=== PATIENT | female | born 1985 | race Two or more races ===

== ENCOUNTER → 2016-09-03 | Outpatient (CLI) | payer OTHER ==
[~2016-09-03] MED LIST: /RANI15TA PO; BACL10TA2 PO; CARB100C PO; D3400CAP PO; GABA-283 PO; HYDR7.5T38 PO; MULTCAP8 PO; PRAZ5CAP PO; TRAZ50TA2 PO; VITATAB11 PO; [UNRECOGNIZED DRUG - OTHER] PO
--- NOTE | 2016-09-12 00:37 | ECWPNPC ---
PATIENT NAME: ARVIND LEVY : 1985 GENDER: FEMALE VISIT DATE: 09/03/2016 DISCHARGE DATE: 09/03/16 1447 VISIT LOCKED DATE TIME: PHYSICIAN: RADHA NOE RESOURCE: RADHA NOE REASON FOR APPOINTMENT 1. RECONSULT LOW BACK PAIN HISTORY OF PRESENT ILLNESS HISTORY OF PRESENT ILLNESS: PAIN THE PATIENT DESCRIBES THE PAIN... FALL RISK SCREENING: SCREENING :NO FALLS IN THE PAST YEAR TODAY'S VISIT: NOTES: FIRST VISIT BACK TO CLINIC WAS 12/23/14 AT WHICH TIME SHE HAD A LESB. AT [facility]. THIS PROVIDED RELIEF FROM HER BACK PAIN. PAIN BEGAN TO RETURN ABOUT 1 1.2 MONTHS AGO. THERE WAS NO SPECIFIC TRAUMA. SENSATION FEELS LIKE A PINCH TO A KICK IN THE BACK. IS HAVING NUMBNESS IN BOTH FEET INTERMITTANTLY, 2-3 TIMES PER DAY, USUALLY WHILE SEATED ON COUCH. HAS BEEN USING HORSE LINIMENT FOR PAIN CONTROL SHE WANTS NO PRESCRIBED MEDS. HAD EPISODE OF SEVERE PAIN A YEAR AGO WHICH CAUSED OVER USAGE OF PAIN MEDS AND SHE WAS HOSPITALIZED FOR THIS IN [facility]HAVIORAL [facility] AT [facility]. CURRENT MEDICATIONS TAKING HYDROXYZINE HCL 50 MG TABLET 1 TABLET NEEDED ORALLY TWICE DAILY TAKING RANITIDINE HCL 150 MG TABLET 1 TABLET AT BEDTIME ORALLY TWICE A DAY TAKING TRAZODONE HCL 50 MG TABLET 1 TABLET AT BEDTIME ORALLY ONCE A DAY TAKING PRAZOSIN HCL 1 MG CAPSULE 3 CAPSULES AT BEDTIME ORALLY ONCE A DAY TAKING CARBAMAZEPINE 100 MG TABLET CHEWABLE 1 TABLET ORALLY TWICE A DAY TAKING RISPERIDONE 1 MG TABLET 1 TABLET ORALLY TWICE A DAY TAKING TOPIRAMATE 25 MG TABLET 1 TABLET ORALLY TWICE A DAY TAKING FLUOXETINE 20 MG CAPSULE 1 CAPSULE IN THE MORNING ORALLY ONCE A DAY TAKING ZIPRASIDONE HCL 20 MG CAPSULE 1 CAPSULE WITH FOOD ORALLY TWICE A DAY TAKING MIRALAX - PACKET 1 PACKET MIXED WITH 8 OUNCES OF FLUID ORALLY ONCE A DAY MEDICATION LIST REVIEWED AND RECONCILED WITH THE PATIENT PAST MEDICAL HISTORY GERD SUICIDE ATTEMPT X1 BY CUTTING WRIST, X1 BY OD DEPRESSION PTSD CHRONIC BACK PAIN IBS ROJELIO WITH CPAP 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 SOCIAL HISTORY GENERAL: TOBACCO USE ARE YOU A:NONSMOKER ALCOHOL SCREENING POINTS1 INTERPRETATIONNEGATIVE RECREATIONAL DRUG USE DRUG USE?NO CAFFEINE CAFFEINE USE?NO OCCUPATION: [employer] CONS[employer]. DIET: REGULAR. EXERCISE: NO REGULAR EXERCISE. MARITAL STATUS: . OTHERS AT HOME: 2 CHILDREN. CHURCH: NONE AT THIS TIME. LEARNING BARRIERS / SPECIAL NEEDS VISION IMPAIRED?YES :CORRECTIVE LENSES LEARNING PREFERENCES?YES :DEMONSTRATION/VERBAL INSTRUCTION MEDICATION ABUSE YES INPATIENT ADMISSION FOR OVERDOSE ON CYCLOBENZAPRINE " BECAUSE OF THAT MUCH PAIN" PSYCHOLOGICAL HX TREATMENTYES HOW OFTEN AND HOW MUCH? 2-3 WEEKS NEW PATIENT PAIN DIARY TODAY'S VISITNOTES FROM 0-10, WHAT LEVEL IS YOUR PAIN TODAY?0 PAIN CLINIC PFS, CLERGY, PUBLIC HEALTH REFERRALS PFS REFERRAL NEEDED?NO CLERGY REFERRAL NEEDED?NO PUBLIC HEALTH REFERRAL NEEDED?NO WAS THE PROVIDER NOTIFIED OF ANY PERTINENT INFO?NO PFS REFERRAL NEEDED?NO CLERGY REFERRAL NEEDED?NO PUBLIC HEALTH REFERRAL NEEDED?NO WAS THE PROVIDER NOTIFIED OF ANY PERTINENT INFO?NO ADVANCED DIRECTIVES HEALTH CARE PROXY?YES NAME OF HCP RENEE LEVY CONTACT # FOR HCP [phone] IF YES, DO YOU HAVE A COPY WITH YOU? NO DOMESTIC VIOLENCE: NONE. HOSPITALIZATION/MAJOR DIAGNOSTIC PROCEDURE DEPRESSION-SUICIDE ATTEMPTS 2016 SEE SURGICAL HX-ADMITS REVIEW OF SYSTEMS CONSTITUTIONAL: ANY CHANGE IN YOUR MEDICAL CONDITION? YES TONSILLECTOMY 08/22/16 . CHILLS NO . FEVER NO . INFECTION: DO YOU HAVE NEW INFECTIONS? NO . DO YOU HAVE HISTORY OF MRSA? NO . MUSCULOSKELETAL: ANY NEW PATTERNS OF PAIN OR NUMBNESS? YES PT NOTES INTERMIITENT NUMBNESS IN BOTH FEET X 4 MOS. . GASTROENTEROLOGY: ANY NEW CHANGE IN BOWEL CONTROL? NO . GENITOURINARY: ANY NEW CHANGE IN BLADDER CONTROL? NO . IS THERE A CHANCE YOU COULD BE ? NO . HEMATOLOGY/LYMPH: DO YOU TAKE ANY BLOOD THINNERS? (FOR EXAMPLE- COUMADIN, PLAVIX, AGGRENOX, PLATEL, PRADAXA, OR XARELTO) NO . WHEN WAS YOUR LAST DOSE? DATE: TIME: . NEUROLOGY: HAVE YOU FALLEN IN THE PAST 6 MONTHS? NO . ANY NEW EXTREMITY NUMBNESS OR WEAKNESS? NUMBNESS IN FEET INTERMITTANTLY . CARDIOLOGY: DO YOU HAVE A PACEMAKER OR DEFIBRILLATOR? NO . RESPIRATORY: SLEEP APNEA TONSILLECTOMY FOR RELIEF OF SLEEP APNEA . HAVE YOU BEEN SICK IN THE PAST WEEK? NO . FEVER NO . FLU LIKE SYMPTOMS? NO . COUGH NO . INTEGUMENTARY: DO YOU HAVE ANY RASHES OR OPEN SORES? NO . ALLERGIC/IMMUNO: ARE YOU ALLERGIC TO SHELLFISH OR IV DYE? NO . ANY NEW ALLERGIES? NO . PSYCHIATRIC: DO YOU HAVE THOUGHTS OF HURTING YOURSELF OR SOMEONE ELSE? NO . ARE YOU ABUSED, NEGLECTED, OR IN AN UNSAFE ENVIRONMENT? NO . ENDOCRINOLOGY: ARE YOU DIABETIC? NO . OTHER: DO YOU NEED ANY PRESCRIPTIONS? NO . IF YES, PLEASE LIST: ____ . ANY NEW PROBLEMS WITH YOUR MEDICATIONS? NO . WHEN DID YOU LAST EAT? ____ . WHEN DID YOU LAST DRINK? ____ . WHAT DID YOU LAST DRINK? ____ . NAME OF PERSON DRIVING YOU HOME? ____ . DO YOU HAVE ANY OTHER QUESTIONS OR CONCERNS NO . PSYCHOLOGY: ARE YOU RECEIVING COUNSELING? YES - ONGOING TREATMENT . REVIEWED BY: PROVIDER: RADHA FRAZIER . VITAL SIGNS WT 173 LBS, HT 63 IN, BMI 30.64 INDEX, BP 128/84 MM HG, HR 70 /MIN, RR 16 /MIN, TEMP 96.6 F, OXYGEN SAT % 100%, NA INITIALS LC 1323, REVIEWED BY: MLF. EXAMINATION GENERAL EXAMINATION: PSYCHALERT , ORIENTED X 3 , APPROPRIATE MOOD AND AFFECT , GOOD EYE CONTACT, LAUGHS FREQUENTLY. VOICE LOUD. HEENT:NORMOCEPHALIC, NO LYMPHADENOPATHY NO THYROMEGALY . VOICE HOARSE.. LUNGS:CLEAR TO AUSCULTATION BILATERALLY, NO WHEEZES RALES OR RHONCHI. HEART:NORMAL S1S2, NO MURMURS, CLICK OR RUBS. MUSCULOSKELETAL:POINT TENDERNESS OVER LUMBAR SPINOUS PROCESSES AND ACROSS THE LUMBOSACRAL AXIS. POINT TENDERNESS ALSO PRESENT BILATERALLY OVER THE SACROILIAC JOINTS. CAN FLEX TO 45 . EXTEND TO 20 . CAN ROTATE SIDE TO SIDE WITHOUT DIFFICULTY. STRAIGHT LEG RAISE POSITIVE AT 20 BILATERALLY. POSITIVE JESSA'S TESTING. MUSCLE STRENGTH 5 OVER 5 DISTALLY AND PROXIMALLY IN THE UPPER AND LOWER EXTREMITIES.. NEUROLOGIC EXAM:DTRS 1+ IN THE BILATERAL UPPER EXTREMITY 3+ BILATERALLY AT THE KNEE PLANTAR RESPONSES FLEXOR. NO CLONUS NO SENSORY DEFICIT NOTED.. ASSESSMENTS LUMBAR DISC DISPLACEMENT WITHOUT MYELOPATHY - M51.26 (PRIMARY) LUMBAR RADICULAR PAIN - M54.16 TREATMENT LUMBAR DISC DISPLACEMENT WITHOUT MYELOPATHY CAUDAL/LUMBAR EPIDURAL NOTES: LUMBAR EPIDURAL INJECTION: RECOVERY AT HOME MATERIAL WAS PRINTED,LUMBAR EPIDURAL INJECTION: YOUR PROCEDURE MATERIAL WAS PRINTED. CLINICAL NOTES: PATIENT HAS HAD INTERVENTIONAL TREATMENTS IN THE PAST WITH GOOD EFFECT AND WOULD LIKE TO REPEAT AN LUMBAR EPIDURAL., OPTION FOR EPIDURAL INJECTIONS WERE DISCUSSED WITH THE PATIENT. FDA CONCERNS AND WARNING WERE REVIEWED INCLUDING THE RISK OF BLEEDING, RISK OF INFECTION, RISK OF INCREASED PAIN OR NEURALGIA, AND RISK OF PARALYSIS. PATIENT'S QUESTIONS WERE ANSWERED AND HE/SHE WISHES TO MOVE FORWARD WITH EPIDURAL INJECTION. PROCEDURE CODES FA211 ESTABILISHED PATIENT [facility] FACILITY CHARGE DISPOSITION & COMMUNICATION FOLLOW UP AFTER INJECTION (REASON: NEED AUTH FOR LESB IN 2-3 WEEKS) ELECTRONICALLY SIGNED BY MELBA MARTINEZ ON 09/11/2016 AT 06:44 PM EST DISCLAIMER : THIS IS A VISIT SUMMARY EXTRACTED FROM THE [employer] CHART. IT IS NOT A COPY OF THE [employer] PROGRESS NOTE. JUWAN
== END ==
LOC: M PAIN 13:20
PROVIDERS: ATTEND Nurse Practitioner Family
DX: M51.26 Other intervertebral disc displacement, lumbar region (principal); M54.16 Radiculopathy, lumbar region; Z79.899 Other long term (current) drug therapy; K21.9 Gastro-esophageal reflux disease without esophagitis; F32.9 Major depressive disorder, single episode, unspecified; F43.12 Post-traumatic stress disorder, chronic; G91.9 Hydrocephalus, unspecified; Z86.19 Personal history of other infectious and parasitic diseases; G40.89 Other seizures; Z91.040 Latex allergy status

== ENCOUNTER → 2017-01-07 | Outpatient (CLI) | payer OTHER ==
--- NOTE | 2017-01-14 01:28 | ECWPNPC ---
PATIENT NAME: ARVIND LEVY : 1985 GENDER: FEMALE VISIT DATE: 01/07/2017 DISCHARGE DATE: 01/07/17 1139 VISIT LOCKED DATE TIME: PHYSICIAN: RADHA NOE RESOURCE: RADHA NOE REASON FOR APPOINTMENT 1. NEEDS MRI SCRIPT HISTORY OF PRESENT ILLNESS HISTORY OF PRESENT ILLNESS: PAIN THE PATIENT DESCRIBES THE PAIN... FALL RISK SCREENING: SCREENING :NO FALLS IN THE PAST YEAR TODAY'S VISIT: NOTES: RATES PAIN TODAY 5/10. PAIN CENTERED IN LOW BACK. DESCRIBES PAIN ACHING AND SORE. IS S/P LESB WITH DECREASE IN PAIN OF 50% WITH NO FURTHER PAIN INTO LEFT LEG. PAIN INTO LEFT LEG WAS EXCRUTIATING, ELECTRIC SHOCK LIKE AND HAD PREVENTED FROM WALKING. MARKED INCREASE IN PAIN AND SWELLING IN LEFT LEG AFTER DAY SPENT AT WORK. CONTINUES TO HAVE SOME WEAKNESS AND FOOTDROP LEFT LEG AT THE END OF THE DAY.. CURRENT MEDICATIONS TAKING HYDROXYZINE HCL 50 MG TABLET 1 TABLET NEEDED ORALLY TWICE DAILY TAKING CARBAMAZEPINE 100 MG TABLET CHEWABLE 1 TABLET ORALLY TWICE A DAY TAKING RANITIDINE HCL 150 MG TABLET 1 TABLET AT BEDTIME ORALLY TWICE A DAY TAKING TRAZODONE HCL 50 MG TABLET 1 TABLET AT BEDTIME ORALLY ONCE A DAY TAKING PRAZOSIN HCL 1 MG CAPSULE 3 CAPSULES AT BEDTIME ORALLY ONCE A DAY TAKING TOPIRAMATE 50 MG TABLET 1 TABLET ORALLY TWICE A DAY TAKING FLUOXETINE 20 MG CAPSULE 1 CAPSULE IN THE MORNING ORALLY ONCE A DAY TAKING ZIPRASIDONE HCL 20 MG CAPSULE 1 CAPSULE WITH FOOD ORALLY TWICE A DAY TAKING MIRALAX - PACKET 1 PACKET MIXED WITH 8 OUNCES OF FLUID ORALLY ONCE A DAY NOT-TAKING RISPERIDONE 1 MG TABLET 1 TABLET ORALLY TWICE A DAY MEDICATION LIST REVIEWED AND RECONCILED WITH THE PATIENT PAST MEDICAL HISTORY GERD SUICIDE ATTEMPT X1 BY CUTTING WRIST, X1 BY OD DEPRESSION PTSD CHRONIC BACK PAIN IBS ROJELIO WITH CPAP HYDROCEPHALUS WITH TOMBSTONE SETTER SHUNT MENINGITIS SEIZURES ALLERGIES LATEX GLOVES: HIVES: ALLERGY SURGICAL HISTORY TOMBSTONE SETTER SHUNT 1985 TOMBSTONE SETTER SHUNT REVISION 1991 BREAST REDUCTION 2011 TONSILLECTOMY 08/2016 HOSPITALIZATION/MAJOR DIAGNOSTIC PROCEDURE DEPRESSION-SUICIDE ATTEMPTS 2016 SEE SURGICAL HX-ADMITS REVIEW OF SYSTEMS REVIEWED BY: PROVIDER: RADHA FRAZIER . CONSTITUTIONAL: ANY CHANGE IN YOUR MEDICAL CONDITION? NO . CHILLS NO . FEVER NO . INFECTION: DO YOU HAVE NEW INFECTIONS? NO . DO YOU HAVE HISTORY OF MRSA? NO . MUSCULOSKELETAL: ANY NEW PATTERNS OF PAIN OR NUMBNESS? NO . GASTROENTEROLOGY: ANY NEW CHANGE IN BOWEL CONTROL? NO . GENITOURINARY: ANY NEW CHANGE IN BLADDER CONTROL? NO . IS THERE A CHANCE YOU COULD BE ? NO . HEMATOLOGY/LYMPH: DO YOU TAKE ANY BLOOD THINNERS? (FOR EXAMPLE- COUMADIN, PLAVIX, AGGRENOX, PLATEL, PRADAXA, OR XARELTO) NO . WHEN WAS YOUR LAST DOSE? DATE: TIME: . NEUROLOGY: HAVE YOU FALLEN IN THE PAST 6 MONTHS? NO . ANY NEW EXTREMITY NUMBNESS OR WEAKNESS? NO . CARDIOLOGY: DO YOU HAVE A PACEMAKER OR DEFIBRILLATOR? NO . RESPIRATORY: HAVE YOU BEEN SICK IN THE PAST WEEK? NO . FEVER NO . FLU LIKE SYMPTOMS? NO . COUGH NO . INTEGUMENTARY: DO YOU HAVE ANY RASHES OR OPEN SORES? NO . ALLERGIC/IMMUNO: ARE YOU ALLERGIC TO SHELLFISH OR IV DYE? NO . ANY NEW ALLERGIES? NO . PSYCHIATRIC: DO YOU HAVE THOUGHTS OF HURTING YOURSELF OR SOMEONE ELSE? NO . ARE YOU ABUSED, NEGLECTED, OR IN AN UNSAFE ENVIRONMENT? NO . ENDOCRINOLOGY: ARE YOU DIABETIC? NO . OTHER: DO YOU NEED ANY PRESCRIPTIONS? YES NEEDS MRI SCRIPT . IF YES, PLEASE LIST: ____ . ANY NEW PROBLEMS WITH YOUR MEDICATIONS? NO . WHEN DID YOU LAST EAT? ____ . WHEN DID YOU LAST DRINK? ____ . WHAT DID YOU LAST DRINK? ____ . NAME OF PERSON DRIVING YOU HOME? ____ . DO YOU HAVE ANY OTHER QUESTIONS OR CONCERNS NO . PSYCHOLOGY: ARE YOU RECEIVING COUNSELING? CONTINUES WITH COUNSELING AND PSYCHIATRST. IS STAYING AWAY FROM ALL OPIODS. . VITAL SIGNS WT 176 LBS, HT 63 IN, BMI 31.17 INDEX, BP 126/56 MM HG, HR 66 /MIN, RR 18 /MIN, TEMP 09.2 F, OXYGEN SAT % 07, SAFE IN ENV? (Y/N) Y, REVIEWED BY: KG. EXAMINATION GENERAL EXAMINATION: PSYCHALERT , ORIENTED X 3 , APPROPRIATE MOOD AND AFFECT . LUNGS:CLEAR TO AUSCULTATION BILATERALLY, NO WHEEZES, RALES OR RHONCHI. HEART:HEART RATE REGULAR. MUSCULOSKELETAL:POINT TENDERNESS OVER LUMBAR SPINOUS PROCESSES AND RIGHT LUMBAR FACETS. NO TENDERNESSS OVER BILATERAL SIJ REGIONS. , MUSCLE STRENGTH TESTING 5/5 RIGHT LOWER EXTREMITY AND 5-/5 LEFTL LOWER EXTREMITY. SLOW TO RISE TO STANDING POSITION. , TRIGGER POINTS AND TIGHT FIBROUS BANDS OVER LUMBOSACRAL AXIS BILATERALLY.. NEUROLOGIC EXAM:NO SENSORY DEFICEIR TO LIGHT TOUCH. ASSESSMENTS LUMBAR DISC DISPLACEMENT WITHOUT MYELOPATHY - M51.26 (PRIMARY) LUMBAR RADICULAR PAIN - M54.16 TREATMENT LUMBAR DISC DISPLACEMENT WITHOUT MYELOPATHY [facility] MRI SPINE, L.S. WITHOUT [id number] Smith 01/07/2017 11:29:17 AM > INCREASED LOW BACK PAIN. LUMBAR RADICULOPATHY NOTES: CONTINUE EXERCISES AND STRETCHES. USE ALTERNATING HEAT AND ICE TO LOW BACK NEEDED. LIFT AND BEND CAREFULLY. CLINICAL NOTES: PT'S PREVIOUS MRI OF LUMBAR SPINE REVIEWED FROM 12/25/11. WILL UPDATE THIS IN PREP FOR FURTHER INTERVENTIONAL TREATMENT. PROCEDURE CODES FA211 ESTABILISHED PATIENT [facility] CHARGE DISPOSITION & COMMUNICATION FOLLOW UP 1 MONTH (REASON: NEED AUTH FOR LUMBAR MRI) ELECTRONICALLY SIGNED BY MELBA MARTINEZ ON 01/13/2017 AT 05:09 PM EDT DISCLAIMER : THIS IS A VISIT SUMMARY EXTRACTED FROM THE [employer] CHART. IT IS NOT A COPY OF THE [employer] PROGRESS NOTE. JUWAN
== END | disposition home or self-care (01) ==
LOC: M PAIN 11:20
PROVIDERS: ATTEND Nurse Practitioner Family
DX: G89.29 Other chronic pain (principal); M51.26 Other intervertebral disc displacement, lumbar region; M54.16 Radiculopathy, lumbar region; K21.9 Gastro-esophageal reflux disease without esophagitis; F33.9 Major depressive disorder, recurrent, unspecified; F43.10 Post-traumatic stress disorder, unspecified; K58.9 Irritable bowel syndrome, unspecified; G47.33 Obstructive sleep apnea (adult) (pediatric); G91.9 Hydrocephalus, unspecified; R56.9 Unspecified convulsions; Z98.2 Presence of cerebrospinal fluid drainage device; Z91.5 Personal history of self-harm; Z86.19 Personal history of other infectious and parasitic diseases; Z79.899 Other long term (current) drug therapy; Z91.040 Latex allergy status

== ENCOUNTER → 2017-09-05 | Outpatient (REF) | payer BC ==
[2017-09-05 12:45] LABS: BASO % 0.3 % (0.0-1.0); EOS % 0.4 % (0.0-3.0); HEMATOCRIT 41.1 % (36.0-47.0); HEMOGLOBIN 13.5 g/dl (12.0-16.0); IMMATURE GRANULOCYTE % 0.2 % (0-3.0); LYMPH # 1.3 10^3/uL (1.5-4.5); LYMPH % 14.2 % (24.0-44.0); MEAN CORPUSCULAR HEMOGLOBIN 28.5 pg (27.0-33.0); MEAN CORPUSCULAR HGB CONC 32.8 g/dl (32.0-36.5); MEAN CORPUSCULAR VOLUME 86.9 fl (80.0-96.0); MONO # 0.5 10^3/uL (0.0-0.8); MONO % 5.4 % (0.0-5.0); NEUTROPHILS # 7.2 10^3/uL (1.8-7.7); NEUTROPHILS % 79.5 % (36.0-66.0); PLATELET COUNT, AUTOMATED 296 10^3/uL (150-450); RED BLOOD COUNT 4.73 10^6/uL (4.00-5.40); RED CELL DISTRIBUTION WIDTH 11.9 % (11.5-14.5); WHITE BLOOD COUNT 9.1 10^3/uL (4.0-10.0)
[2017-09-05 13:10] LABS: ALBUMIN 4.2 GM/DL (3.2-5.2); ALKALINE PHOSPHATASE 131 U/L (45-117); ALT/SGPT 33 U/L (12-78); ANION GAP 7 MEQ/L (8-16); AST/SGOT 16 U/L (7-37); BILIRUBIN,TOTAL 0.2 MG/DL (0.2-1.0); BLOOD UREA NITROGEN 11 MG/DL (7-18); CALCIUM LEVEL 8.9 MG/DL (8.5-10.1); CARBAMAZEPINE (TEGRETOL) LEVEL 9.2 UG/ML (4.0-10.0); CARBON DIOXIDE LEVEL 27 MEQ/L (21-32); CHLORIDE LEVEL 109 MEQ/L (98-107); GLOMERULAR FILTRATION RATE > 60.0 (>60); GLUCOSE, FASTING 85 MG/DL (70-100); POTASSIUM SERUM 4.4 MEQ/L (3.5-5.1); RHEUMATOID FACTOR QUANT < 10.0 IU/ML (0-15.0); SODIUM LEVEL 143 MEQ/L (136-145); TOTAL PROTEIN 7.2 GM/DL (6.4-8.2)
[2017-09-05 13:34] LABS: ERYTHROCYTE SEDIMENTATION RATE 6 mm/hr (0-20)
[2017-09-06 14:10] LABS: ANTINUCLEAR ANTIBODIES DIRECT Negative (Negative)
[2017-09-09 14:11] LABS: TOPIRAMATE LEVEL 1.4 ug/mL (2.0-25.0)
== END ==
LOC: M LABNEURO 09:43
DX: R56.9 Unspecified convulsions (principal)
CPT/HCPCS: 84443